=== PATIENT | male | born 1985 | race Two or more races ===

== ENCOUNTER 2022-10-31 08:51 | Emergency (ER) | payer MEDICAID, OTHER ==
[~2022-10-31] VITALS: Ht 172.7 cm; Wt 112.4 kg
[2022-10-31 10:39] VITALS: BP 140/99
[2022-10-31] MEDS ORDERED: ACETAMINOPHEN 500 MG TAB PO STA (11:16)
[2022-10-31] MEDS ORDERED: AZITTAB PO (11:20)
[2022-10-31] MEDS ORDERED: ACET1CAP14 PO (11:20)
== END 2022-10-31 11:40 | disposition home or self-care (01) ==
LOC: ER 08:51
DX: J06.9 Acute upper respiratory infection, unspecified (principal); I10 Essential (primary) hypertension; Z20.822 Contact with and (suspected) exposure to COVID-19
CPT/HCPCS: 36415; 87070; 87426; 87804; 87880